=== PATIENT | female | born 1970 | race Caucasian/White ===

== ENCOUNTER 2016-12-30 12:34 | Observation (INO) | payer OTHER ==
[~2016-12-30] VITALS: Ht 157.5 cm; Wt 145.0 kg
[2016-12-30 12:35] VITALS: BP 156/76; PULSE 70; RESP 24; TEMP 98; O2SAT 97
[2016-12-30] MEDS ORDERED: XARE10TA PO (12:59)
[2016-12-30] MEDS ORDERED: CELE20TA PO (12:59)
--- NOTE | 2016-12-30 12:59 | PD ---
HPI Chief Complaint: Chest Pain Time Seen by Provider: 12:59 Travel History International Travel<30 days: No Contact w/Intl Traveler<30days: No Traveled to known affect area: No History of Present Illness HPI 46-year-old female with history of PE, currently on Xarelto, and depression, presents to the emergency department today for evaluation of left-sided chest pain, acute onset while walking around a store. Patient states it is sharp and aching, constant, but does not radiate anywhere. She can pinpoint exactly where she is feeling the pain. Cannot recall any exacerbating or alleviating factors. Had mild shortness of breath associated with it. Preceding the onset , her stomach had "been in knots." No diaphoresis or light headed sensation. Patient states it is currently bear but mild. Patient has no recent illnesses, fever, or chills to report. No cough or chest congestion. No cardiac history. She has no other symptoms to report at this time. PFSH Past Medical History Hx Anticoagulant Therapy: Yes (Xeralto) Cardiovascular Problems: Yes (Pulmonary Emboli 2 years ) Chemotherapy: No Cerebrovascular Accident: No Respiratory: No ?: Unknown Past Surgical History Hysterectomy: Yes Social History Alcohol Use: No Tobacco Use: No Substance Use: No Allergies-Medications (Allergen,Severity, Reaction): Coded Allergies: No Known Allergies (Unverified , 12/30/16) Reported Meds & Prescriptions Reported Meds & Active Scripts Active Reported Celexa (Citalopram Hydrobromide) 20 Mg Tab 20 Mg PO DAILY Xarelto (Rivaroxaban) 10 Mg Tab 10 Mg PO DAILY Review of Systems Except as stated in HPI: all other systems reviewed are Neg Physical Exam Narrative GENERAL: Obese female patient, ambulatory and in no acute distress SKIN: Warm and dry. HEAD: Atraumatic. Normocephalic. EYES: Pupils equal and round. No scleral icterus. No injection or drainage. ENT: No nasal bleeding or discharge. Mucous membranes pink and moist. NECK: Trachea midline. No JVD. CARDIOVASCULAR: Regular rate and rhythm. No murmur appreciated. RESPIRATORY: No accessory muscle use. Diminished, likely due to girth. Breath sounds equal bilaterally. GASTROINTESTINAL: Abdomen soft, non-tender, nondistended. Hepatic and splenic margins not palpable. MUSCULOSKELETAL: No obvious deformities. No clubbing. No cyanosis. No edema. NEUROLOGICAL: Awake and alert. No obvious cranial nerve deficits. Motor grossly within normal limits. Normal speech. PSYCHIATRIC: Appropriate mood and affect; insight and judgment normal. Data Data Last Documented VS Vital Signs Date Time Temp Pulse Resp B/P Pulse Ox O2 Delivery O2 Flow Rate FiO2 12/30/16 13:12 111/58 113/61 12/30/16 13:10 68 100 Nasal Cannula 3 12/30/16 12:35 98.0 24 Orders Electrocardiogram (12/30/16 12:58) Basic Metabolic Panel (Bmp) (12/30/16 12:58) B-Type Natriuretic Peptide (12/30/16 12:58) Ckmb (Isoenzyme) Profile (12/30/16 12:58) Complete Blood Count With Diff (12/30/16 12:58) D-Dimer (12/30/16 12:58) Magnesium (Mg) (12/30/16 12:58) Prothrombin Time / Inr (Pt) (12/30/16 12:58) Act Partial Throm Time (Ptt) (12/30/16 12:58) Troponin I (12/30/16 12:58) Chest, Single Ap (12/30/16 12:58) Ecg Monitoring (12/30/16 12:58) Bilateral Bp Monitoring (12/30/16 12:58) Iv Access Insert/Monitor (12/30/16 12:58) Oximetry (12/30/16 12:58) Oxygen Administration (12/30/16 12:58) Aspirin Chew (Aspirin Chew) (12/30/16 13:00) Sodium Chloride 0.9% Flush (Ns Flush) (12/30/16 13:00) Admit Order (Ed Use Only) (12/30/16 14:24) Labs Laboratory Tests Test 12/30/16 13:10 White Blood Count 7.6 TH/MM3 Red Blood Count 4.74 MIL/MM3 Hemoglobin 13.8 GM/DL Hematocrit 40.7 % Mean Corpuscular Volume 85.9 FL Mean Corpuscular Hemoglobin 29.2 PG Mean Corpuscular Hemoglobin 34.0 % Concent Red Cell Distribution Width 14.0 % Platelet Count 270 TH/MM3 Mean Platelet Volume 8.1 FL Neutrophils (%) (Auto) 58.8 % Lymphocytes (%) (Auto) 33.8 % Monocytes (%) (Auto) 5.8 % Eosinophils (%) (Auto) 1.2 % Basophils (%) (Auto) 0.4 % Neutrophils # (Auto) 4.5 TH/MM3 Lymphocytes # (Auto) 2.6 TH/MM3 Monocytes # (Auto) 0.4 TH/MM3 Eosinophils # (Auto) 0.1 TH/MM3 Basophils # (Auto) 0.0 TH/MM3 CBC Comment DIFF FINAL Differential Comment Prothrombin Time 11.4 SEC Prothromb Time International 1.0 RATIO Ratio Activated Partial 29.5 SEC Thromboplast Time D-Dimer Quantitative (PE/DVT) 0.29 MG/L FEU Sodium Level 140 MEQ/L Potassium Level 3.9 MEQ/L Chloride Level 104 MEQ/L Carbon Dioxide Level 28.0 MEQ/L Anion Gap 8 MEQ/L Blood Urea Nitrogen 8 MG/DL Creatinine 0.85 MG/DL Estimat Glomerular Filtration 72 ML/MIN Rate Random Glucose 91 MG/DL Calcium Level 9.0 MG/DL Magnesium Level 2.3 MG/DL Total Creatine Kinase 75 U/L Troponin I LESS THAN 0.02 NG/ML B-Type Natriuretic Peptide 21 PG/ML MDM Medical Decision Making Medical Screen Exam Complete: Yes Emergency Medical Condition: Yes Medical Record Reviewed: Yes Differential Diagnosis ACS versus chest wall pain versus costochondritis versus PE Narrative Course 46 year-old female presents to emergency department for evaluation of acute onset left-sided chest pain while walking in a store. Patient appears well and without distress. EKG is without acute concern; reviewed by my attending physician. CBC and BMP are without acute concern. Troponin is less than 0.02. BNP is 21. Chest x-ray is normal examination. I discussed the patient my attending physician Dr. Castellano who agrees the patient would likely benefit from chest pain center admission for serial cardiac enzymes and observation. Plan is discussed the patient and her . They are in agreement with this plan of care. Diagnosis Primary Impression: Chest pain Qualified Code: R07.9 - Chest pain, unspecified type Admitting Information Admitting Physician Requests: Observation Condition: Stable MathewSherry CHAUHAN Dec 30, 2016 12:59
[2016-12-30] MEDS ORDERED: SODIUM CHLORIDE 0.9% FLUSH 10 ML FLUSH IVF PRN (13:00)
[2016-12-30] MEDS ORDERED: ASPIRIN 81 MG CHEW TAB PO ONE (13:00)
[2016-12-30 13:10] VITALS: BP 111/58; PULSE 68; O2SAT 100
[2016-12-30 13:12] VITALS: BP_SYST 111; BP_SYST 113; BP_DIAS 58; BP_DIAS 61
[2016-12-30 13:28] LABS: AUTOMATED NEUTROPHIL # 4.5 TH/MM3 (1.8-7.7); BASOPHIL % 0.4 % (0.0-2.0); EOSINOPHIL # 0.1 TH/MM3 (0-0.4); EOSINOPHIL % 1.2 % (0.0-4.0); HEMATOCRIT 40.7 % (35.0-46.0); HEMO FLAGS DIFF FINAL; LYMPH % 33.8 % (9.0-44.0); LYMPHOCYTE # 2.6 TH/MM3 (1.0-4.8); MEAN CELL VOLUME 85.9 FL (80.0-100.0); MEAN CORPUSCULAR HEMOGLOBIN 29.2 PG (27.0-34.0); MONO % 5.8 % (0.0-8.0); NEUT % 58.8 % (16.0-70.0); PLATELET COUNT 270 TH/MM3 (150-450); RED BLOOD COUNT 4.74 MIL/MM3 (4.00-5.30); WHITE BLOOD COUNT 7.6 TH/MM3 (4.0-11.0)
[2016-12-30 13:45] LABS: ANION GAP 8 MEQ/L (5-15); BLOOD UREA NITROGEN 8 MG/DL (7-18); CHLORIDE 104 MEQ/L (98-107); GLOMERULAR FILTRATION RATE 72 ML/MIN (>89); MAGNESIUM 2.3 MG/DL (1.5-2.5); POTASSIUM 3.9 MEQ/L (3.5-5.1); SODIUM (NA) 140 MEQ/L (136-145)
[2016-12-30 13:53] LABS: APTT (PATIENT) 29.5 SEC (24.3-30.1); PROTHROMBIN TIME - PATIENT 11.4 SEC (9.8-11.6)
[2016-12-30 13:56] LABS: CREATINE KINASE 75 U/L (26-192)
--- NOTE | 2016-12-30 14:03 | RADRPT ---
EXAM DATE/TIME: 12/30/2016 13:41 [facility] COMPARISON: No previous studies available for comparison. INDICATIONS : Chest pain, shortness of breath starting this morning MEDICAL HISTORY : None. SURGICAL HISTORY : None. ENCOUNTER: Initial ACUITY: 1 day PAIN SCORE: 9/10 LOCATION: Center of chest FINDINGS: A single view of the chest demonstrates the lungs to be symmetrically aerated without evidence of mas s, infiltrate or effusion. The cardiomediastinal contours are unremarkable. Osseous structures are intact. CONCLUSION: Normal examination. Suzanne Contreras MD on December 30, 2016 at 14:02 Board Certified Radiologist. This report was verified electronically.
[2016-12-30] MEDS ORDERED: ONDANSETRON HCL 4 MG/2 ML VIAL IV PRN (15:30)
[2016-12-30] MEDS ORDERED: ACETAMINOPHEN 500 MG CPLT PO PRN (15:30)
[2016-12-30] MEDS ORDERED: NITROGLYCERIN 0.4 MG SL 25 TABS/BTL SL PRN (15:30)
[2016-12-30] MEDS ORDERED: SODIUM CHLORIDE 0.9% FLUSH 10 ML FLUSH IV FLUSH PRN (15:30)
--- NOTE | 2016-12-30 16:01 | HHI.DCPOC ---
Discharge Care Plan Diagnosis: (1) Musculoskeletal chest pain Goals to Promote Your Health * To prevent worsening of your condition and complications * To maintain your health at the optimal level Directions to Meet Your Goals Take your medications as prescribed Follow your dietary instruction Follow activity as directed Keep your appointments as scheduled Take your immunizations and boosters as scheduled If your symptoms worsen call your PCP, if no PCP go to Urgent Care Center or Emergency Room Smoking is Dangerous to Your Health. Avoid second hand smoke Call the 24-hour hour crisis hotline for domestic abuse at Ashli Crawley Dec 30, 2016 16:01
--- NOTE | 2016-12-30 16:16 | EKG ---
Date Performed: 12/30/2016 Time Performed: 13:00:25 PTAGE: 46 years EKG: Sinus rhythm LOW QRS VOLTAGE IN PRECORDIAL LEADS BORDERLINE ECG NO PREVIOUS TRACING DOCTOR: Wilder Dumont Interpretating Date/Time 12/30/2016 16:15:31
--- NOTE | 2016-12-30 18:07 | HHI.HP ---
HPI Primary Care Physician Rayne Still Chief Complaint Chest pain History of Present Illness 46-year-old patient onset of chest pain this a.m. Location left anterior chest she can pinpoint. Made worse with palpation. Described as a constant ache. No associated symptoms no known precipitating or relieving factors. Never had pain like this in the past. No trauma to area that she can recall. Precipitating factors include touching area. No known relieving factors. Review of Systems General: No fatigue,weakness, fever, chills, recent illness, or change in appetite CV: As stated above. No palpitations, intermittent leg pain, dizziness RESP: No SOB, cough, wheeze, or recent URI GI: No nausea, vomiting, bowel changes, diarrhea, constipation, pain, distention , melena, blood in the stool. Purposeful weight loss, has lost 10 pounds in 2 weeks. EXT: No lower leg edema, no paraesthesias MS: No discomfort or change in ROM NEURO: No change in memory, dizziness, difficulty with balance, LOC, motor/ sensory deficits PSYCH: No anxiety. Depression stable on current medication regimen. SKIN: No rashes, no concerning lesions Past Family Social History Allergies: Coded Allergies: No Known Allergies (Unverified , 12/30/16) Past Medical History PE2 years. Source never found therefore lifelong anticoagulants Past Surgical History Hysterectomy, cholecystectomy Reported Medications Reported Meds & Active Scripts Active Reported Celexa (Citalopram Hydrobromide) 20 Mg Tab 20 Mg PO DAILY Xarelto (Rivaroxaban) 10 Mg Tab 10 Mg PO DAILY Active Ordered Medications Current Medications Medications (Trade) Dose Ordered Sig/Marko Route Start Time Stop Time Status Last Admin (Tylenol) 500 mg Q4H PRN PO 12/30/16 15:30 (Zofran Inj) 4 mg Q6H PRN IV 12/30/16 15:30 (Nitrostat Sl) 0.4 mg Q5M PRN SL 12/30/16 15:30 (Aspirin) 325 mg DAILY PO 12/31/16 09:00 Family History Negative for early onset cardiovascular disease Social History . Lifelong nonsmoker. Denies any alcohol or illegal drug use. Activeattends gym 3 days a week including [place], muscle strengthening, and yoga Past cardiac testing No formal cardiac testing Physical Exam Vital Signs Vital Signs Date Time Temp Pulse Resp B/P Pulse Ox O2 Delivery O2 Flow Rate FiO2 12/30/16 13:12 111/58 113/61 12/30/16 13:10 68 111/58 100 Nasal Cannula 3 12/30/16 13:10 100 Nasal Cannula 2 12/30/16 13:00 98 Room Air 12/30/16 12:35 98.0 70 24 156/76 97 Room Air Physical Exam GENERAL: Alert WN, WD, NAD, pleasant, morbidly obese, female HEAD: NC, AT NECK: Supple, no masses, trachea midline CV: RRR, without murmur, rub, gallop, no JVD, S1-S2 no S3-S4. No carotid or femoral bruits. Reproducible left anterior chest tenderness upon palpation. RESP: Clear lungs throughout bilateral, no crackles, wheeze, rhonchi, symmetrical chest rise, nonlabored, able to speak in full sentences ABD: Soft, obese, NT, ND, no masses, positive bowel tones EXT: Pulses +24, no dependent edema MS: Normal tone 4 extremities, nontender, no obvious deformities, full range of motion NEURO: CN II through CN XII grossly intact, motor strength 5/5, gait WNL PSYCH: A+O 3, pleasant affect, appropriate speech, appropriate mood and affect , insight and judgment SKIN: Normal turgor, normal texture, no lesions, no rashes, brisk cap refill, even hair distribution Laboratory Laboratory Tests Test 12/30/16 13:10 White Blood Count 7.6 Red Blood Count 4.74 Hemoglobin 13.8 Hematocrit 40.7 Mean Corpuscular Volume 85.9 Mean Corpuscular Hemoglobin 29.2 Mean Corpuscular Hemoglobin 34.0 Concent Red Cell Distribution Width 14.0 Platelet Count 270 Mean Platelet Volume 8.1 Neutrophils (%) (Auto) 58.8 Lymphocytes (%) (Auto) 33.8 Monocytes (%) (Auto) 5.8 Eosinophils (%) (Auto) 1.2 Basophils (%) (Auto) 0.4 Neutrophils # (Auto) 4.5 Lymphocytes # (Auto) 2.6 Monocytes # (Auto) 0.4 Eosinophils # (Auto) 0.1 Basophils # (Auto) 0.0 CBC Comment DIFF FINAL Differential Comment Prothrombin Time 11.4 Prothromb Time International 1.0 Ratio Activated Partial 29.5 Thromboplast Time D-Dimer Quantitative (PE/DVT) 0.29 Sodium Level 140 Potassium Level 3.9 Chloride Level 104 Carbon Dioxide Level 28.0 Anion Gap 8 Blood Urea Nitrogen 8 Creatinine 0.85 Estimat Glomerular Filtration 72 Rate Random Glucose 91 Calcium Level 9.0 Magnesium Level 2.3 Total Creatine Kinase 75 Troponin I LESS THAN 0.02 B-Type Natriuretic Peptide 21 Result Diagram: 12/30/16 1310 12/30/16 1310 Imaging Last Impressions Chest X-Ray 12/30/16 1258 Signed Impressions: Service Date/Time: Friday, December 30, 2016 13:41 - CONCLUSION: Normal examination. Suzanne Contreras MD Course EKG First EKG normal sinus rhythm, normal axis, no ST or T segment changes Assessment and Plan Assessment and Plan #1 Chest painadmitted to chest pain center. Ruled out with 1 EKG and cardiac enzymes. Seen and evaluated by Dr. Wilder Dumont. Chest pain clearly musculoskeletal in nature as it is reproducible and localized on small area of left anterior chest. No further cardiac testing required. Discussed in length with patient and whom is at bedside. Will discharge patient this afternoon. Both agreeable to plan a care. #2 Musculoskeletal painencouraged Tylenol [id number] as needed for pain. May use heating pad to affected area. Follow with PCP if symptoms persist. Patient on Xarelto therefore unable to take NSAIDs. Ashli Crawley Dec 30, 2016 18:07
[2016-12-30] MEDS ORDERED: SODIUM CHLORIDE 0.9% FLUSH 10 ML FLUSH IV FLUSH SCH (21:00)
[2016-12-31] MEDS ORDERED: ASPIRIN 325 MG TAB PO SCH (09:00)
== END 2016-12-30 16:56 | disposition home or self-care (01) ==
LOC: NEPC 12:34 → INTOOBSV 14:25 → NEDA 14:25 → UNDODEPER 01-01 21:13
DX: R07.89 Other chest pain (principal); F32.9 Major depressive disorder, single episode, unspecified; Z86.711 Personal history of pulmonary embolism; Z79.01 Long term (current) use of anticoagulants
CPT/HCPCS: 71010; 80048; 82550; 83735; 83880; 84484; 85025; 85379; 85610; 85730; 93005; 99285; G0378